=== PATIENT | female | born 1970 | race Caucasian/White ===

== ENCOUNTER 2021-11-25 01:34 | Emergency (ER) | payer OTHER ==
[2021-11-25 02:34] LABS: Glucose,Whole Blood 81 mg/dL (75-99)
[2021-11-25 02:42] LABS: Basophils % (A) 1 %; Eosinophils # (A) 0.1 k/uL (0-0.7); Eosinophils % (A) 3 %; HCT 37.7 % (34.0-46.0); HGB 12.2 gm/dL (11.4-16.0); Lymphocytes # (A) 2.4 k/uL (1.0-4.8); Lymphocytes % (A) 52 %; MCH 32.4 pg (25.0-35.0); MCHC 32.4 g/dL (31.0-37.0); MCV 99.8 fL (80.0-100.0); Macrocytosis Slight; Mean Platelet Volume 7.6; Monocytes # (A) 0.2 k/uL (0-1.0); Monocytes % (A) 4 %; Neutrophils # (A) 1.6 k/uL (1.3-7.7); Neutrophils % (A) 36 %; Platelet Count 183 k/uL (150-450); RBC 3.77 m/uL (3.80-5.40); RDW 14.3 % (11.5-15.5); WBC 4.5 k/uL (3.8-10.6)
[2021-11-25 02:45] VITALS: TEMP 98
[2021-11-25 02:54] LABS: Albumin 3.2 g/dL (3.5-5.0); Calcium 8.8 mg/dL (8.4-10.2); Potassium 3.6 mmol/L (3.5-5.1); Total Bilirubin 0.4 mg/dL (0.2-1.3); Total Protein 5.7 g/dL (6.3-8.2)
[2021-11-25 03:02] LABS: Partial Thromboplastin Time 24.3 sec (22.0-30.0); Prothrombin Time 11.2 sec (9.0-12.0)
[2021-11-25 03:21] LABS: Appearance,Urine Clear (Clear); Bacteria,Urine Rare /hpf; Bilirubin,Urine Negative (Negative); Blood,Urine Negative (Negative); Color,Urine Yellow; Glucose,Urine (UA) Negative (Negative); Ketones,Urine Negative (Negative); Leukocyte Esterase,Urine Large (Negative); Mucus,Urine Rare /hpf; Nitrite,Urine Negative (Negative); PH, Urine 6.5 (5.0-8.0); Protein,Urine Negative (Negative); RBC,Urine 1 /hpf (0-5); Specific Gravity,Urine 1.016 (1.001-1.035); Squamous Epithelial Cell,Urine 7 /hpf (0-4); WBC,Urine 15 /hpf (0-5)
--- NOTE | 2021-11-25 03:23 | CT ---
EXAMINATION TYPE: CT brain wo con DATE OF EXAM: 11/25/2021 COMPARISON: None HISTORY: AMS CT DLP: 1078.6 mGycm Automated exposure control for dose reduction was used. Ventricles have normal size. There is no mass effect or midline shift. There is no sign of intracrani al hemorrhage. Calvarium is intact. There is normal aeration of the mastoid sinuses. IMPRESSION: Negative unenhanced head CT scan.
[2021-11-25 03:38] LABS: Amphetamine Screen,Urine Not Detected (NotDetected); Barbiturate Screen,Urine Not Detected (NotDetected); Benzodiazepines Screen,Urine Not Detected (NotDetected); Cocaine Screen,Urine Not Detected (NotDetected); Methadone Screen, Urine Not Detected (NotDetected); Opiate Screen,Urine Not Detected (NotDetected); Oxycodone Screen, Urine Not Detected (NotDetected); Phencyclidine Screen,Urine Not Detected (NotDetected); Tricyclic Antidepressant,Urine Not Detected (NotDetected); Urn Cannabinoid Scrn Detected (NotDetected)
--- NOTE | 2021-11-25 03:41 | XR ---
EXAMINATION TYPE: XR chest 1V DATE OF EXAM: 11/25/2021 COMPARISON: NONE HISTORY: Pain. Altered mental status TECHNIQUE: FINDINGS: Heart is normal. Lungs are clear of infiltrate. There is no heart failure. There are no hil ar masses. Costophrenic angles are clear. IMPRESSION: No active cardiopulmonary disease.
[2021-11-25 03:45] VITALS: RESP 18
[2021-11-25] MEDS ORDERED: SODIUM CHLORIDE 0.9% 1,000 ML IV ONE (04:34)
[2021-11-25] MEDS: SULFAMETHOX-TMP 800-160MG 1 EACH TAB PO STA ×2 (04:41→04:50)
--- NOTE | 2021-11-25 07:01 | ED ---
Headache HPI - General Chief Complaint: Headache Stated Complaint: Headache, Dizziness Time Seen by Provider: 11/25/21 02:01 Mode of arrival: ambulatory - History of Present Illness Initial Comments: This patient is a 51-year-old woman who presents to be evaluated for which she describes as a swimming feeling in her head. She states that it is not a spinning or vertiginous (to clarify from nursing note). She was feeling unsteady. There was also little bit of generalized headache. She had a similar episode a couple of weeks ago. She denies worst headache of life. There is no fever or chills. No neck stiffness. No strokelike symptoms. MD Complaint: other -: hour(s) Onset Description: gradual, now resolved Consistency: now resolved Improves With: nothing Worsens With: none Context: occurred at rest Associated Symptoms: nausea Treatments Prior to Arrival: none - Related Data Previous Rx's Medication Instructions Recorded Cephalexin [Keflex] 500 mg PO Q6HR #28 cap 11/25/21 Allergies Allergy/AdvReac Type Severity Reaction Status Date / Time No Known Allergies Allergy Verified 11/25/21 02:50 Review of Systems ROS Statement: Those systems with pertinent positive or pertinent negative responses have been documented in the HPI. ROS Other: All systems not noted in ROS Statement are negative. Constitutional: Denies: fever, chills, weakness Eyes: Denies: eye pain, vision change Respiratory: Denies: cough, dyspnea Cardiovascular: Denies: chest pain, palpitations, syncope Gastrointestinal: Reports: nausea. Denies: abdominal pain, vomiting Genitourinary: Reports: frequency. Denies: dysuria, hematuria Musculoskeletal: Denies: back pain Skin: Denies: rash Neurological: Reports: as per HPI, headache. Denies: weakness, numbness, confusion, vertigo General Exam General appearance: alert, in no apparent distress Head exam: Present: atraumatic, normocephalic Eye exam: Present: normal appearance ENT exam: Present: mucous membranes dry Neck exam: Present: normal inspection, full ROM. Absent: tenderness, meningismus Respiratory exam: Present: normal lung sounds bilaterally. Absent: respiratory distress, wheezes, rales, rhonchi, stridor Cardiovascular Exam: Present: regular rate, normal rhythm, normal heart sounds. Absent: systolic murmur, diastolic murmur, rubs, gallop GI/Abdominal exam: Present: soft. Absent: distended, tenderness, guarding, rebound, rigid, mass Extremities exam: Present: normal inspection, normal capillary refill. Absent: pedal edema, calf tenderness Back exam: Present: normal inspection Neurological exam: Present: alert, oriented X3, CN II-XII intact. Absent: motor sensory deficit Skin exam: Present: warm, dry, intact, normal color. Absent: rash Course Vital Signs 11/25/21 11/25/21 11/25/21 02:40 02:45 03:41 Temperature 98.0 F Pulse Rate 63 56 L 70 Respiratory 18 16 18 Rate Blood Pressure 111/70 99/68 125/87 O2 Sat by Pulse 95 92 L 95 Oximetry 11/25/21 05:00 Temperature Pulse Rate 65 Respiratory 18 Rate Blood Pressure 111/90 O2 Sat by Pulse 98 Oximetry Medical Decision Making - Lab Data Result diagrams: 11/25/21 02:21 11/25/21 02:21 Lab Results 11/25/21 11/25/21 11/25/21 Range/Units 02:21 02:21 02:21 WBC 4.5 (3.8-10.6) k/uL RBC 3.77 L (3.80-5.40) m/uL Hgb 12.2 (11.4-16.0) gm/dL Hct 37.7 (34.0-46.0) % MCV 99.8 (80.0-100.0) fL MCH 32.4 (25.0-35.0) pg MCHC 32.4 (31.0-37.0) g/dL RDW 14.3 (11.5-15.5) % Plt Count 183 (150-450) k/uL MPV 7.6 Neutrophils % 36 % Lymphocytes % 52 % Monocytes % 4 % Eosinophils % 3 % Basophils % 1 % Neutrophils # 1.6 (1.3-7.7) k/uL Lymphocytes # 2.4 (1.0-4.8) k/uL Monocytes # 0.2 (0-1.0) k/uL Eosinophils # 0.1 (0-0.7) k/uL Basophils # 0.0 (0-0.2) k/uL Macrocytosis Slight PT 11.2 (9.0-12.0) sec INR 1.0 (<1.2) APTT 24.3 (22.0-30.0) sec Sodium (137-145) mmol/L Potassium (3.5-5.1) mmol/L Chloride (98-107) mmol/L Carbon Dioxide (22-30) mmol/L Anion Gap mmol/L BUN (7-17) mg/dL Creatinine (0.52-1.04) mg/dL Est GFR (CKD-EPI)AfAm (>60 ml/min/1.73 sqM) Est GFR (CKD-EPI)NonAf (>60 ml/min/1.73 sqM) Glucose (74-99) mg/dL POC Glucose (mg/dL) (75-99) mg/dL POC Glu Cable Engineer Outside Plant ID Calcium (8.4-10.2) mg/dL Total Bilirubin (0.2-1.3) mg/dL AST (14-36) U/L ALT (4-34) U/L Alkaline Phosphatase (38-126) U/L Troponin I (0.000-0.034) ng/mL Total Protein (6.3-8.2) g/dL Albumin (3.5-5.0) g/dL Urine Color Yellow Urine Appearance Clear (Clear) Urine pH 6.5 (5.0-8.0) Ur Specific [place] 1.016 (1.001-1.035) Urine Protein Negative (Negative) Urine Glucose (UA) Negative (Negative) Urine Ketones Negative (Negative) Urine Blood Negative (Negative) Urine Nitrite Negative (Negative) Urine Bilirubin Negative (Negative) Urine Urobilinogen 2.0 (<2.0) mg/dL Ur Leukocyte Esterase Large H (Negative) Urine RBC 1 (0-5) /hpf Urine WBC 15 H (0-5) /hpf Ur Squamous Epith Cells 7 H (0-4) /hpf Urine Bacteria Rare H (None) /hpf Urine Mucus Rare H (None) /hpf Urine Opiates Screen Not Detected (NotDetected) Ur Oxycodone Screen Not Detected (NotDetected) Urine Methadone Screen Not Detected (NotDetected) Ur Propoxyphene Screen Not Detected (NotDetected) Ur Barbiturates Screen Not Detected (NotDetected) U Tricyclic Antidepress Not Detected (NotDetected) Ur Phencyclidine Scrn Not Detected (NotDetected) Ur Amphetamines Screen Not Detected (NotDetected) U Methamphetamines Scrn Not Detected (NotDetected) U Benzodiazepines Scrn Not Detected (NotDetected) Urine Cocaine Screen Not Detected (NotDetected) U Marijuana (THC) Screen Detected H (NotDetected) 11/25/21 11/25/21 11/25/21 Range/Units 02:21 02:21 02:32 WBC (3.8-10.6) k/uL RBC (3.80-5.40) m/uL Hgb (11.4-16.0) gm/dL Hct (34.0-46.0) % MCV (80.0-100.0) fL MCH (25.0-35.0) pg MCHC (31.0-37.0) g/dL RDW (11.5-15.5) % Plt Count (150-450) k/uL MPV Neutrophils % % Lymphocytes % % Monocytes % % Eosinophils % % Basophils % % Neutrophils # (1.3-7.7) k/uL Lymphocytes # (1.0-4.8) k/uL Monocytes # (0-1.0) k/uL Eosinophils # (0-0.7) k/uL Basophils # (0-0.2) k/uL Macrocytosis PT (9.0-12.0) sec INR (<1.2) APTT (22.0-30.0) sec Sodium 139 (137-145) mmol/L Potassium 3.6 (3.5-5.1) mmol/L Chloride 105 (98-107) mmol/L Carbon Dioxide 31 H (22-30) mmol/L Anion Gap 3 mmol/L BUN 18 H (7-17) mg/dL Creatinine 0.89 (0.52-1.04) mg/dL Est GFR (CKD-EPI)AfAm 87 (>60 ml/min/1.73 sqM) Est GFR (CKD-EPI)NonAf 75 (>60 ml/min/1.73 sqM) Glucose 76 (74-99) mg/dL POC Glucose (mg/dL) 81 (75-99) mg/dL POC Glu Cable Engineer Outside [employer] ID Victorinoler, Farheen Calcium 8.8 (8.4-10.2) mg/dL Total Bilirubin 0.4 (0.2-1.3) mg/dL AST 17 (14-36) U/L ALT 9 (4-34) U/L Alkaline Phosphatase 52 (38-126) U/L Troponin I <0.012 (0.000-0.034) ng/mL Total Protein 5.7 L (6.3-8.2) g/dL Albumin 3.2 L (3.5-5.0) g/dL Urine Color Urine Appearance (Clear) Urine pH (5.0-8.0) Ur Specific [place] (1.001-1.035) Urine Protein (Negative) Urine Glucose (UA) (Negative) Urine Ketones (Negative) Urine Blood (Negative) Urine Nitrite (Negative) Urine Bilirubin (Negative) Urine Urobilinogen (<2.0) mg/dL Ur Leukocyte Esterase (Negative) Urine RBC (0-5) /hpf Urine WBC (0-5) /hpf Ur Squamous Epith Cells (0-4) /hpf Urine Bacteria (None) /hpf Urine Mucus (None) /hpf Urine Opiates Screen (NotDetected) Ur Oxycodone Screen (NotDetected) Urine Methadone Screen (NotDetected) Ur Propoxyphene Screen (NotDetected) Ur Barbiturates Screen (NotDetected) U Tricyclic Antidepress (NotDetected) Ur Phencyclidine Scrn (NotDetected) Ur Amphetamines Screen (NotDetected) U Methamphetamines Scrn (NotDetected) U Benzodiazepines Scrn (NotDetected) Urine Cocaine Screen (NotDetected) U Marijuana (THC) Screen (NotDetected) Disposition Clinical Impression: Urinary tract infection Disposition: HOME SELF-CARE Condition: Good Instructions (If sedation given, give patient instructions): Urinary Tract Infection in Women (ED) Prescriptions: Cephalexin [Keflex] 500 mg PO Q6HR #28 cap Is patient prescribed a controlled substance at d/c from ED?: No Referrals: Nonstaff,Physician [Primary Care Provider] - 1-2 days
[2021-11-25 07:58] VITALS: BP 112/91; PULSE 66
== END 2021-11-25 07:55 | disposition home or self-care (01) ==
LOC: EC 01:34
DX: N39.0 Urinary tract infection, site not specified (principal)
CPT/HCPCS: 36415; 93005; 80053; 84484; 85025; 85610; 85730; 81001; 80306; 87086; 71045; 70450; 99284; 96365; J0696

== ENCOUNTER 2021-11-29 00:52 | Emergency (ER) | payer OTHER ==
[2021-11-29 01:27] VITALS: BP 106/58; PULSE 73; RESP 17; TEMP 98
[2021-11-29] MEDS ORDERED: ONDANSETRON ODT 4 MG TAB PO STA (03:06)
== END 2021-11-29 03:22 | disposition left against medical advice (07) ==
LOC: EC 00:52
DX: Z53.21 Procedure and treatment not carried out due to patient leaving prior to being seen by health care provider (principal)
CPT/HCPCS: 99499

== ENCOUNTER 2023-03-13 03:45 | Observation (INO) | payer OTHER ==
[2023-03-13] MEDS ORDERED: NITROGLYCERIN SL TABS 0.4 MG TAB SUBLINGUAL STA (04:08)
[2023-03-13 04:33] LABS: Basophils % (A) 1 %; Eosinophils # (A) 0.2 k/uL (0-0.7); Eosinophils % (A) 3 %; HCT 40.2 % (34.0-46.0); HGB 13.3 gm/dL (11.4-16.0); Lymphocytes # (A) 2.3 k/uL (1.0-4.8); Lymphocytes % (A) 40 %; MCH 30.8 pg (25.0-35.0); MCV 93.3 fL (80.0-100.0); Mean Platelet Volume 7.6; Monocytes # (A) 0.4 k/uL (0-1.0); Monocytes % (A) 7 %; Neutrophils # (A) 2.6 k/uL (1.3-7.7); Neutrophils % (A) 47 %; Platelet Count 255 k/uL (150-450); RBC 4.31 m/uL (3.80-5.40); RDW 13.8 % (11.5-15.5); WBC 5.6 k/uL (3.8-10.6)
[2023-03-13 04:45] LABS: ALT 18 U/L (4-34); AST 24 U/L (14-36); African American GFR (CKD) 54 (>60 ml/min/1.73 sqM); Albumin 3.7 g/dL (3.5-5.0); Alkaline Phosphatase 111 U/L (38-126); Anion Gap 8 mmol/L; Blood Urea Nitrogen 15 mg/dL (7-17); Calcium 9.3 mg/dL (8.4-10.2); Carbon Dioxide 26 mmol/L (22-30); Chloride 104 mmol/L (98-107); Glucose 94 mg/dL (74-99); Magnesium 2.2 mg/dL (1.6-2.3); Non-African American GFR(CKD) 47 (>60 ml/min/1.73 sqM); Potassium 3.8 mmol/L (3.5-5.1); Sodium 138 mmol/L (137-145); Total Bilirubin 0.3 mg/dL (0.2-1.3); Total Protein 6.6 g/dL (6.3-8.2)
[2023-03-13] MEDS ORDERED: NITROGLYCERIN OINT 1 INCH/GM PACKET TOPICAL STA (04:57)
[2023-03-13 05:23] LABS: INR 0.9 (<1.2); Prothrombin Time 9.8 sec (9.0-12.0)
[2023-03-13 05:24] LABS: Partial Thromboplastin Time 22.4 sec (22.0-30.0)
[2023-03-13] MEDS ORDERED: NITROGLYCERIN SL TABS 0.4 MG TAB SUBLINGUAL PRN ×2 (05:54→14:53)
[2023-03-13] MEDS ORDERED: MORPHINE SULFATE 4 MG/ML SYRINGE IV STA (06:11)
[2023-03-13] MEDS ORDERED: MORPHINE SULFATE 4 MG/ML SYRINGE IVP STA (06:16)
[2023-03-13] MEDS ORDERED: HEPARIN SODIUM 1,000 UN/ML (10ML VL) IV PRN (06:46)
[2023-03-13] MEDS ORDERED: HEPARIN SODIUM 1,000 UN/ML (10ML VL) IV ONE (06:46)
--- NOTE | 2023-03-13 06:46 | ED ---
Chest Pain HPI - General Chief Complaint: Chest Pain Stated Complaint: Chest Pain Time Seen by Provider: 03/13/23 03:51 Source: patient, EMS Mode of arrival: EMS - History of Present Illness Initial Comments: This patient is 52-year-old woman who presents with substernal chest pain that she woke with tonight. The patient states that it radiates to the arm. She called EMS and was given nitroglycerin that did relieve the pain. Patient has risk factors including family history and smoking. MD Complaint: chest pain Onset/Timin -: hour(s) Onset: during rest Pain Location: substernal Pain Radiation: LUE Severity: moderate Severity scale (1-10): 7 Quality: tightness Consistency: now resolved Improves With: nitroglycerin Worsens With: nothing Treatments Prior to Arrival: aspirin, nitroglycerin, oxygen - Related Data Previous Rx's Medication Instructions Recorded Cephalexin [Keflex] 500 mg PO Q6HR #28 cap 11/25/21 Allergies Allergy/AdvReac Type Severity Reaction Status Date / Time meperidine [From Demerol] AdvReac Unknown Verified 03/13/23 04:00 Review of Systems ROS Statement: Those systems with pertinent positive or pertinent negative responses have been documented in the HPI. ROS Other: All systems not noted in ROS Statement are negative. Constitutional: Denies: fever, chills Respiratory: Denies: cough, dyspnea Cardiovascular: Reports: chest pain. Denies: palpitations, edema, syncope Gastrointestinal: Denies: abdominal pain, nausea, vomiting Genitourinary: Denies: dysuria, hematuria Musculoskeletal: Denies: back pain Skin: Denies: rash Neurological: Denies: headache, weakness EKG Findings - EKG Comments: EKG Findings:: Fossa right ventricular conduction delay based on QR pattern - EKG Results: EKG: interpreted by ERMD, sinus rhythm (Rate 70 bpm), normal axis - Blocks, [place], Hypertrophy, ST Abn: Repolarization changes or abnormalities: nonspecific abnormality, ST segment, and/or T wave Past Medical History Past Medical History: No Reported History Additional Past Medical History / Comment(s): migranes, TMJ, sciatica pain, PTSD History of Any Multi-Drug Resistant Organisms: None Reported Past Surgical History: Section Past Psychological History: Bipolar, PTSD Smoking Status: Current every day smoker Past Alcohol Use History: None Reported Past Drug Use History: None Reported General Exam General appearance: alert, in no apparent distress Head exam: Present: atraumatic, normocephalic Eye exam: Present: normal appearance. Absent: scleral icterus, conjunctival injection ENT exam: Present: normal oropharynx Neck exam: Present: normal inspection Respiratory exam: Present: normal lung sounds bilaterally. Absent: respiratory distress, wheezes, rales, rhonchi, stridor Cardiovascular Exam: Present: regular rate, normal rhythm, normal heart sounds. Absent: systolic murmur, diastolic murmur, rubs, gallop GI/Abdominal exam: Present: soft. Absent: distended, tenderness, guarding, rebound, rigid, mass Extremities exam: Present: normal inspection, normal capillary refill. Absent: pedal edema, calf tenderness Back exam: Present: normal inspection. Absent: CVA tenderness (R), CVA tenderness (L) Neurological exam: Present: alert Skin exam: Present: warm, dry, intact, normal color. Absent: rash Course Vital Signs 03/13/23 03/13/23 03/13/23 03:47 04:00 04:15 Temperature 97.7 F Pulse Rate 74 68 72 Respiratory 18 Rate Blood Pressure 140/80 140/80 135/86 O2 Sat by Pulse 97 95 94 L Oximetry 03/13/23 03/13/23 03/13/23 04:30 04:45 05:00 Temperature Pulse Rate 68 68 70 Respiratory Rate Blood Pressure 97/59 106/68 106/68 O2 Sat by Pulse 94 L 94 L 96 Oximetry 03/13/23 03/13/23 03/13/23 05:15 05:30 05:45 Temperature Pulse Rate 68 62 69 Respiratory Rate Blood Pressure 115/78 112/68 107/72 O2 Sat by Pulse 98 96 95 Oximetry 03/13/23 03/13/23 06:00 06:15 Temperature Pulse Rate 65 64 Respiratory Rate Blood Pressure 109/75 107/70 O2 Sat by Pulse 96 96 Oximetry Disposition Clinical Impression: Chest pain Disposition: ADMITTED IP TO THIS HOSP Condition: Fair Instructions (If sedation given, give patient instructions): Chest Pain (ED) Is patient prescribed a controlled substance at d/c from ED?: No Referrals: GEOVANNI JUAREZ MD [Primary Care Provider] - 1-2 days
[2023-03-13] MEDS ORDERED: HEPARIN SOD,PORK IN 0.45% NACL 25,000 UNIT in 0.45% NACL 1 250ML.BAG IV SCH (07:00)
--- NOTE | 2023-03-13 07:43 | XR ---
EXAM: XR Chest, 2 Views CLINICAL HISTORY: ITS.REASON XR Reason: Chest Pain TECHNIQUE: Frontal and lateral views of the chest. COMPARISON: No relevant prior studies available. IMPRESSION: 1. Apparent airspace disease on frontal imaging is favored to relate to overlying soft tissues at this is not seen on lateral imaging. 2. No acute cardiopulmonary abnormality.
--- NOTE | 2023-03-13 09:38 | P.CRDCN ---
History of Present Illness History of present illness: HISTORY OF PRESENT ILLNESS: This is a 52-year-old female with a past medical history significant for bipolar disorder and nicotine dependence. Patient does not follow with a certified fire investigator. We have been asked to see the patient in consultation for chest pain. Patient examined at the bedside. Patient states she woke up at 3:00 this morning from sleep with chest discomfort. She states the pain was a 10/10 at that time. She states that she tried to calm down and relax and the pain went to a 4/10. She denied any shortness of breath or radiation of the pain. She denies a history of hypertension, hyperlipidemia, or diabetes. She has a current cigarette smoker. She reports family history of coronary artery disease and states her dad had his first stent at age 42 and her brother had a 5 vessel CABG at age 54. * EKG reveals sinus mechanism with no signs of acute ischemia * Chest xray negative for acute process * Laboratory data: WBC 5.6. Hemoglobin 13.3. Platelet count 255. Sodium 138. Potassium 3.8. BUN 15. Creatinine 1.31. Magnesium 2.2. Troponin negative 2. * Current home cardiac medications include none REVIEW OF SYSTEMS: At the time of my exam: CONSTITUTIONAL: Denies fever or chills. HEENT: Denies blurred vision, vision changes, or eye pain. Denies hemoptysis CARDIOVASCULAR: Denies chest pain. Denies orthopnea. Denies PND. Denies palpitations RESPIRATORY: Denies shortness of breath. GASTROINTESTINAL: Denies abdominal pain. Denies nausea or vomiting. HEMATOLOGIC: Denies bleeding disorders. GENITOURINARY: Denies any blood in urine. SKIN: Denies pruitis. Denies rash. PHYSICAL EXAM: VITAL SIGNS: Reviewed. GENERAL: Well-developed in no acute distress. HEENT: Head is normocephalic. Pupils are equal, round. Sclerae anicteric. Mucous membranes of the mouth are moist. Neck supple. No JVD or thyromegaly LUNGS: Respirations even and unlabored. Lungs essentially clear to auscultation bilaterally. HEART: Regular rate and rhythm. S1 and S2 heard. ABDOMEN: Soft. Nondistended. Nontender. EXTREMITIES: Normal range of motion. No clubbing or cyanosis. Peripheral pulses intact. No lower extremity edema NEUROLOGIC: Awake and alert. Oriented x 3. ASSESSMENT: Chest pain, troponins negative 2 Acute kidney injury Bipolar disorder Nicotine dependence Family history of premature coronary artery disease PLAN: An acute coronary has been ruled out. Discontinue IV heparin. Decrease aspirin to 81 mg daily Obtain lipid panel Obtain third troponin Obtain 2-D echo to assess cardiac structure and function Patient to undergo stress echocardiogram today Smoking cessation recommended If negative, she may be discharged home from a cardiac standpoint Nurse practitioner note has been reviewed by physician. Signing provider agrees with the documented findings, assessment, and plan of care. Past Medical History Past Medical History: No Reported History Additional Past Medical History / Comment(s): migranes, TMJ, sciatica pain, PTSD History of Any Multi-Drug Resistant Organisms: None Reported Past Surgical History: Section Past Psychological History: Bipolar, PTSD Smoking Status: Current every day smoker Past Alcohol Use History: None Reported Past Drug Use History: None Reported Medications and Allergies Home Medications Medication Instructions Recorded Confirmed Type Divalproex ER [Depakote ER] 1,000 mg PO HS 03/13/23 03/13/23 History Escitalopram [Lexapro] 20 mg PO HS 03/13/23 03/13/23 History Phenazopyridine HCl [Pyridium] 100 mg PO BID 03/13/23 03/13/23 History Sulfamethox-Tmp 800-160Mg [Bactrim 1 tab PO BID 03/13/23 03/13/23 History DS 800-160 mg] diphenhydrAMINE [Benadryl] 75 mg PO HS PRN 03/13/23 03/13/23 History risperiDONE [RisperDAL] 2 mg PO HS 03/13/23 03/13/23 History Allergies Allergy/AdvReac Type Severity Reaction Status Date / Time meperidine [From Demerol] AdvReac Nausea & Verified 03/13/23 08:28 Vomiting Physical Exam Vitals: Vital Signs Temp Pulse Resp BP Pulse Ox 03/13/23 07:00 60 18 105/73 96 03/13/23 06:15 64 107/70 96 03/13/23 06:00 65 109/75 96 03/13/23 05:45 69 107/72 95 03/13/23 05:30 62 112/68 96 03/13/23 05:15 68 115/78 98 03/13/23 05:00 70 106/68 96 03/13/23 04:45 68 106/68 94 L 03/13/23 04:30 68 97/59 94 L 03/13/23 04:15 72 135/86 94 L 03/13/23 04:00 68 140/80 95 03/13/23 03:47 97.7 F 74 18 140/80 97 Intake and Output 03/12/23 03/13/23 03/13/23 22:59 06:59 14:59 Other: Weight 63.503 kg Results 03/13/23 04:15 03/13/23 04:15 Cardiac Enzymes 03/13/23 03/13/23 03/13/23 Range/Units 04:15 04:15 07:20 AST 24 (14-36) U/L Troponin I <0.012 <0.012 (0.000-0.034) ng/mL Coagulation 03/13/23 Range/Units 04:15 PT 9.8 (9.0-12.0) sec APTT 22.4 (22.0-30.0) sec CBC 03/13/23 Range/Units 04:15 WBC 5.6 (3.8-10.6) k/uL RBC 4.31 (3.80-5.40) m/uL Hgb 13.3 (11.4-16.0) gm/dL Hct 40.2 (34.0-46.0) % Plt Count 255 (150-450) k/uL Comprehensive Metabolic Panel 03/13/23 Range/Units 04:15 Sodium 138 (137-145) mmol/L Potassium 3.8 (3.5-5.1) mmol/L Chloride 104 (98-107) mmol/L Carbon Dioxide 26 (22-30) mmol/L BUN 15 (7-17) mg/dL Creatinine 1.31 H (0.52-1.04) mg/dL Glucose 94 (74-99) mg/dL Calcium 9.3 (8.4-10.2) mg/dL AST 24 (14-36) U/L ALT 18 (4-34) U/L Alkaline Phosphatase 111 (38-126) U/L Total Protein 6.6 (6.3-8.2) g/dL Albumin 3.7 (3.5-5.0) g/dL Current Medications Generic Name Dose Route Start Last Admin Trade Name Freq PRN Reason Stop Dose Admin Aspirin 325 mg 03/14/23 09:00 Aspirin 325 Mg Tab PO DAILY [facility] Heparin Sodium (Porcine) 0 unit 03/13/23 06:46 Heparin Sodium 1,000 Un/Ml (10ml Vl) IV PER PROTOCOL PRN Low PTT Protocol Heparin Sodium/Sodium Chloride 250 mls @ 7.62 mls/hr 03/13/23 07:00 03/13/23 07:22 25,000 unit/ Sodium Chloride IV 12 units/kg/hr .Q24H PAU 7.62 mls/hr Administration Protocol 12 UNITS/KG/HR Nitroglycerin 0.4 mg 03/13/23 05:54 Nitroglycerin Sl Tabs 0.4 Mg Tab SUBLINGUAL Q5M PRN Chest Pain Intake and Output 03/12/23 03/13/23 03/13/23 22:59 06:59 14:59 Other: Weight 63.503 kg 03/13/23 04:15 03/13/23 04:15
--- NOTE | 2023-03-13 10:43 | P.HPIM ---
History of Present Illness This is a pleasant 52 years old female with past medical history of migraine, PTSD, bipolar. Patient presents because of chest pain about 10/10 in severity 3:00 in the morning today. Patient woke up with this pain which is in the middle nonradiating felt like squeezing with no really precipitating or relieving factors currently her pain is down to 4/10. She denies dyspnea or coughing. No new GI urinary or neurological symptoms when I asked the patient. She smokes 1 pack per day and she was counseled to quit and she agrees to the nicotine patch. No alcohol, she uses marijuana and she goes to addiction doctor to quit. She is hemodynamically stable and afebrile She has unremarkable CBC, INR, BMP and liver enzymes except for mildly elevated creatinine of 1.3 She started on aspirin and heparin drip which is stopped now. Review of Systems Review of systems CONSTITUTIONAL: No fever, no malaise, no fatigue. HEENT: No recent visual problems or hearing problems. Denied any sore throat. CARDIOVASCULAR: No orthopnea, PND, no palpitations, no syncope. PULMONARY: No shortness of breath, no cough, no hemoptysis. GASTROINTESTINAL: No diarrhea, no nausea, no vomiting, no abdominal pain. Normoactive bowel sounds. NEUROLOGICAL: No headaches, no weakness, no numbness. HEMATOLOGICAL: Denies any bleeding or petechiae. GENITOURINARY: Denies any burning micturition, frequency, or urgency. MUSCULOSKELETAL/RHEUMATOLOGICAL: Denies any joint pain, swelling, or any muscle pain. ENDOCRINE: Denies any polyuria or polydipsia. Past Medical History Past Medical History: No Reported History Additional Past Medical History / Comment(s): migranes, TMJ, sciatica pain, PTSD History of Any Multi-Drug Resistant Organisms: None Reported Past Surgical History: Section Past Psychological History: Bipolar, PTSD Smoking Status: Current every day smoker Past Alcohol Use History: None Reported Past Drug Use History: None Reported Medications and Allergies Home Medications Medication Instructions Recorded Confirmed Type Divalproex ER [Depakote ER] 1,000 mg PO HS 03/13/23 03/13/23 History Escitalopram [Lexapro] 20 mg PO HS 03/13/23 03/13/23 History Phenazopyridine HCl [Pyridium] 100 mg PO BID 03/13/23 03/13/23 History Sulfamethox-Tmp 800-160Mg [Bactrim 1 tab PO BID 03/13/23 03/13/23 History DS 800-160 mg] diphenhydrAMINE [Benadryl] 75 mg PO HS PRN 03/13/23 03/13/23 History risperiDONE [RisperDAL] 2 mg PO HS 03/13/23 03/13/23 History Allergies Allergy/AdvReac Type Severity Reaction Status Date / Time meperidine [From Demerol] AdvReac Nausea & Verified 03/13/23 08:28 Vomiting Physical Exam Vitals: Vital Signs Temp Pulse Resp BP Pulse Ox 03/13/23 10:00 60 18 109/60 95 03/13/23 07:00 60 18 105/73 96 03/13/23 06:15 64 107/70 96 03/13/23 06:00 65 109/75 96 03/13/23 05:45 69 107/72 95 03/13/23 05:30 62 112/68 96 03/13/23 05:15 68 115/78 98 03/13/23 05:00 70 106/68 96 03/13/23 04:45 68 106/68 94 L 03/13/23 04:30 68 97/59 94 L 03/13/23 04:15 72 135/86 94 L 03/13/23 04:00 68 140/80 95 03/13/23 03:47 97.7 F 74 18 140/80 97 Intake and Output 03/12/23 03/13/23 03/13/23 22:59 06:59 14:59 Other: Weight 63.503 kg GENERAL: The patient is alert and oriented x3, not in any acute distress. Well developed, well nourished. HEENT: Pupils are round and equally reacting to light. EOMI. No scleral icterus. No conjunctival pallor. Normocephalic, atraumatic. No pharyngeal erythema. No thyromegaly. CARDIOVASCULAR: S1 and S2 present. No murmurs, rubs, or gallops. PULMONARY: Chest is clear to auscultation, no wheezing , no crackles. ABDOMEN: Soft, nontender, nondistended, normoactive bowel sounds. No palpable organomegaly. MUSCULOSKELETAL: No joint swelling or deformity. EXTREMITIES: No cyanosis, clubbing, or pedal edema. NEUROLOGICAL: Gross neurological examination did not reveal any focal deficits. SKIN: No rashes. no petechiae. Results CBC & Chem 7: 03/13/23 04:15 03/13/23 04:15 Labs: Abnormal Lab Results - Last 24 Hours (Table) 03/13/23 Range/Units 04:15 Creatinine 1.31 H (0.52-1.04) mg/dL Assessment and Plan Assessment: Chest pain, rule out cardiac causes Nicotine dependence Mild acute kidney injury History of migraine Depression and bipolar with history of PTSD Plan: Continue with aspirin Cardiology consult Stress test per security operations center analyst Start normal saline at 75 mL/h and monitor creatinine. Check a bladder scan. Labs and medication were reviewed.. Continue same treatment. Continue with symptomatic treatment. Resume home medication. Monitor labs and vitals. DVT and GI prophylaxis. Further recommendations as per clinical course of the patient DVT prophylaxis: Subcutaneous heparin GI Prophylaxis: Pepcid Prognosis is guarded
[2023-03-13] MEDS: SODIUM CHLORIDE 0.9% 1,000 ML IV SCH (10:48)
[2023-03-13] MEDS: FAMOTIDINE 20 MG/2 ML VIAL IV SCH ×2 (10:55→21:51)
[2023-03-13] MEDS ORDERED: CAFFEINE CITRATE 60 MG/3 ML VIAL IV PRN (11:33)
[2023-03-13] MEDS ORDERED: AMINOPHYLLINE 500 MG/20 ML VIAL IV PRN (11:33)
[2023-03-13] MEDS ORDERED: REGADENOSON 0.4 MG/5 ML SYRINGE IV PRN (11:33)
--- NOTE | 2023-03-13 11:46 | CA ---
Transthoracic Echo Report Name: Madison Storm Age: 52 Gender: F : 1970 Exam Date: 03/13/2023 08:30 Exam Location: [facility] Ht (in): 67 Wt (lb): 140 Ordering Physician: Luna Rich Attending/Referring Phys: [id number], Hilario Environmental Consultant Carlin Vila Procedure CPT: Indications: LV function, CP Cardiac Hx: Technical Quality: Fair Contrast 1: Total Dose (mL): Contrast 2: Total Dose (mL): MEASUREMENTS (Male / Female) Normal Values 2D ECHO LV Diastolic Diameter PLAX 4.2 cm 4.2 - 5.9 / 3.9 - 5.3 cm LV Systolic Diameter PLAX 3.0 cm IVS Diastolic Thickness 0.9 cm 0.6 - 1.0 / 0.6 - 0.9 cm LVPW Diastolic Thickness 0.9 cm 0.6 - 1.0 / 0.6 - 0.9 cm LV Relative Wall Thickness 0.4 RV Internal Dim ED PLAX 2.4 cm LVOT Diameter 2.0 cm Aortic Root Diameter 2.8 cm LA Systolic Diameter LX 1.4 cm 3.0 - 4.0 / 2.7 - 3.8 cm LV Diastolic Volume MOD BP 35.5 cm??? 67 - 155 / 56 - 104 cm??? LV Systolic Volume MOD BP 14.7 cm??? 22 - 58 / 19 - 49 cm??? LV Ejection Fraction MOD BP 58.6 % >= 55 % LV Cardiac Index MOD BP 697.1 cm???/min???m??? LV Diastolic Volume MOD 4C 31.5 cm??? LV Systolic Volume MOD 4C 14.2 cm??? LV Ejection Fraction MOD 4C 55.0 % LV Cardiac Index MOD 4C 579.4 cm???/min???m??? LV Diastolic Length 4C 5.9 cm LV Systolic Length 4C 4.9 cm LV Diastolic Volume MOD 2C 40.0 cm??? LV Systolic Volume MOD 2C 10.1 cm??? LV Ejection Fraction MOD 2C 74.8 % LV Cardiac Index MOD 2C 1000.1 cm???/min???m??? LV Diastolic Length 2C 6.0 cm LV Systolic Length 2C 5.2 cm LA Volume 21.3 cm??? 18 - 58 / 22 - 52 cm??? Ascending Aorta Diameter 2.8 cm DOPPLER AV Peak Velocity 112.1 cm/s AV Peak Gradient 5.0 mmHg LVOT Peak Velocity 96.5 cm/s LVOT Peak Gradient 3.7 mmHg AV Area Cont Eq pk 2.8 cm??? MV Peak Velocity 95.0 cm/s MV Peak Gradient 3.6 mmHg MV Mean Velocity 39.1 cm/s MV Mean Gradient 0.8 mmHg MV Velocity Time Integral 32.0 cm Mitral E Point Velocity 85.8 cm/s Mitral A Point Velocity 64.3 cm/s Mitral E to A Ratio 1.3 MV Deceleration Time 268.4 ms MV E' Velocity 11.8 cm/s Mitral E to MV E' Ratio 7.3 TR Peak Velocity 150.3 cm/s TR Peak Gradient 9.0 mmHg Right Ventricular Systolic Press 14.5 mmHg PV Peak Velocity 87.5 cm/s PV Peak Gradient 3.1 mmHg FINDINGS Left Ventricle Normal LV size and wall thickness. Left ventricular ejection fraction is estimated at 50-55 %. Right Ventricle Normal right ventricular size. Right Atrium Normal right atrial size. Left Atrium Normal left atrial size. Mitral Valve Structurally normal mitral valve. Aortic Valve Not well visualized but grossly normal. No aortic valve stenosis or regurgitation. Tricuspid Valve Structurally normal tricuspid valve. Trace TR. Pulmonic Valve Pulmonic valve not well visualized. Mild to moderate PI. Pericardium Normal pericardium. Aorta Normal size aortic root. CONCLUSIONS Normal LV function Previewed by: Dr. Glenroy Hubbard MD (Electronically Signed) Final Date: 13 March 2023 11:45
--- NOTE | 2023-03-13 14:35 | NM ---
EXAMINATION TYPE: NM stress lexiscan cardiolite DATE OF EXAM: 03/13/2023 COMPARISON: NONE CLINICAL INDICATION: Female, 52 years old with history of CP; TECHNIQUE: After the intravenous administration of 10.1 mCi Tc 99m Sestamibi - Cardiolite resting SP ECT images acquired 60 minutes post injection. The patient received 0.4mg Lexiscan, 25.1 mCi Tc 99m Sestamibi - Stress images obtained [address] injection FINDINGS: Review of stress and rest SPECT images demonstrates small area reversibility involving the apex myoca rdium. Gated analysis shows normal wall motion with an estimated left ventricular ejection fraction of 66 %. IMPRESSION: Small focal area of reversibility involving the apex of the myocardium may be artifactual rather than representing an area of stress-induced reversible ischemia correlate clinically.
[2023-03-13] MEDS ORDERED: ALPRAZolam 0.5 MG TAB PO PRN (14:53)
[2023-03-13] MEDS ORDERED: ALPRAZolam 0.25 MG TAB PO PRN (14:53)
[2023-03-13] MEDS: NICOTINE 21MG/24HR PATCH TRANSDERM SCH (15:28)
--- NOTE | 2023-03-13 17:00 | CA ---
Lexiscan Nuclear Stress Test Report Name: Madison Storm Exam Date: 03/13/2023 12:55 Exam Location: [facility] Ht (in): 67 Wt (lb): 140 BSA: 1.74 Ordering Phys: Luna Rich Referring Phys: NILSON,, Technologist: PRAVEEN,, Age: 52 Gender: F : 1970 Procedure CPT: Indications: Reflex order-Stress test ICD-10 Codes: Patient History: Chest pain Medications: Meds past 24 hrs: Pretest Chest Pain: STRESS TEST Lexiscan Protocol Exercise Duration (min:sec): 02:[address] Depressions (mm): Angina Score: Davis Score: Resting HR (bpm): 63 Peak HR (bpm): 91 Resting BP (mmHg): 103 / 59 Peak BP (mmHg): 123 / 62 MPHR: 168 Target HR: 143 % MPHR: 54 METS: 1.0 Total Dose: Peak Dose: Atropine: Double Product: 35585 BP Response: Stress Termination: Infusion complete Stress Symptoms: No chest pain or symptoms Stress Summary: ECG ANALYSIS Resting ECG: Normal sinus rhythm normal axis normal intervals Stress ECG: Patient was given intravenous Lexiscan as a protocol did not have chest pain or diagnostic ST segment depression CONCLUSIONS Negative stress test by EKG criteria Part LAD portion of the stress test will be reported separately Dr. Glenroy Hubbard MD (Electronically Signed) Final Date: 13 March 2023 16:59
[2023-03-13 20:10] LABS: Glucose,Whole Blood 108 mg/dL (70-110)
[2023-03-13] MEDS ORDERED: diphenhydrAMINE 25 MG CAP PO PRN (21:06)
[2023-03-13] MEDS: DIVALPROEX ER 500 MG TAB.ER.24H PO SCH (21:46)
[2023-03-13] MEDS: risperiDONE 2 MG TAB PO SCH (21:46)
[2023-03-13] MEDS: ESCITALOPRAM 20 MG TAB PO SCH (21:46)
[2023-03-13] MEDS: HEPARIN SODIUM,PORCINE 5,000 UNIT/ML 1 ML VIAL SQ SCH (21:46)
[2023-03-14] MEDS: SODIUM CHLORIDE 0.9% 1,000 ML in EMPTY BAG 1 BAG IV SCH ×2 (00:01→16:28)
[2023-03-14] MEDS: SODIUM CHLORIDE 0.9% 1,000 ML IV SCH ×2 (02:26→13:41)
[2023-03-14] MEDS ORDERED: ATORVASTATIN 80 MG TAB PO ONE (05:00)
[2023-03-14] MEDS ORDERED: ASPIRIN 325 MG TAB PO ONE (05:00)
[2023-03-14] MEDS ORDERED: HEPARIN SODIUM,PORCINE 10,000 UNIT in SODIUM CHLORIDE 0.9% 1,000 ML IRRIGATION PRN (07:00)
[2023-03-14] MEDS ORDERED: HEPARIN SODIUM,PORCINE (1 ML) 2,500 UNIT in SODIUM CHLORIDE 0.9% 250 ML IRRIGATION PRN (07:00)
[2023-03-14] MEDS: FAMOTIDINE 20 MG/2 ML VIAL IV SCH ×2 (08:23→21:40)
[2023-03-14] MEDS: NICOTINE 21MG/24HR PATCH TRANSDERM SCH (08:24)
[2023-03-14] MEDS: HEPARIN SODIUM,PORCINE 5,000 UNIT/ML 1 ML VIAL SQ SCH ×2 (08:24→21:40)
[2023-03-14] MEDS ORDERED: ASPIRIN 325 MG TAB PO SCH (09:00)
[2023-03-14] MEDS ORDERED: ASPIRIN 81 MG PO SCH (09:00)
[2023-03-14 10:55] LABS: Basophils # (A) 0.04 X 10*3/uL (0.00-0.10); Eosinophils # (A) 0.13 X 10*3/uL (0.04-0.35); Eosinophils % (A) 3.2 %; HCT 38.8 % (37.2-46.3); HGB 12.6 d/dL (12.0-15.0); Lymphocytes # (A) 1.96 X 10*3/uL (0.90-5.00); MCH 30.4 pg (27.0-32.0); MCHC 32.5 d/dL (32.0-37.0); MCV 93.7 FL (80.0-97.0); Mean Platelet Volume 10.1 FL (9.5-12.2); Monocytes # (A) 0.43 X 10*3/uL (0.20-1.00); Monocytes % (A) 10.5 %; NRBC Per 100 WBC 0 X 10*3/uL (0.00-0.01); Neutrophils # (A) 1.48 X 10*3/uL (1.80-7.70); Neutrophils % (A) 36.3 %; Platelet Count 259 X 10*3/uL (140-440); RBC 4.14 X 10*6/uL (4.10-5.20); RDW 13.8 % (11.5-14.5); WBC 4.08 X 10*3/uL (4.50-10.00)
[2023-03-14 10:58] LABS: INR 0.9 (<1.2); Partial Thromboplastin Time 28.8 sec (22.0-30.0); Prothrombin Time 10.1 sec (9.0-12.0)
[2023-03-14 11:12] LABS: BUN/Creat Ratio 17.08 Ratio (12.00-20.00); Blood Urea Nitrogen 20.5 mg/dL (9.0-27.0); Calcium 8.8 mg/dL (8.7-10.3); Carbon Dioxide 23.6 mmol/L (21.6-31.8); Chloride 107 mmol/L (96-109); Chol/HDL Ratio 4.76 Ratio; Glucose 86 mg/dL (70-110); LDL Cholesterol,Calculated 140.9 mg/dL (0.0-131.0); Potassium 4.9 mmol/L (3.5-5.5); Sodium 139 mmol/L (135-145); VLDL Calculation 18.72 mg/dL (5.00-40.00)
[2023-03-14] MEDS ORDERED: MIDAZOLAM 2 MG/2 ML VIAL IVP ONE (11:29)
[2023-03-14] MEDS ORDERED: fentaNYL (PF) 50 MCG/ML 2 ML AMP IVP ONE (11:30)
[2023-03-14] MEDS ORDERED: LIDOCAINE 1% INJ 10MG/ML (5 ML VIAL-PF) SQ ONE (11:32)
[2023-03-14] MEDS ORDERED: VERAPAMIL SYRINGE (5 MG/10 ML) INTRAARTER ONE (11:35)
[2023-03-14] MEDS ORDERED: HEPARIN SODIUM 1,000 UN/ML (10ML VL) IVP ONE ×2 (11:36)
[2023-03-14] MEDS ORDERED: IOPAMIDOL-370 100ML BTL INJ ONE (11:44)
[2023-03-14] MEDS ORDERED: IV FLUID CONTINUATION 900 ML IV ONE (11:45)
--- NOTE | 2023-03-14 12:11 | CC ---
CARDIAC CATHETERIZATION REPORT INDICATION: Chest pain with abnormal stress test. PROCEDURE NOTE: After obtaining informed consent, left heart catheterization and coronary angiogram were performed via the right radial artery using standard Joy catheters. The patient tolerated the procedure well without any obvious immediate complications. The patient received moderate conscious sedation. Total sedation time was 19 minutes. Right radial artery access was obtained using Seldinger technique. A 6-Spanish sheath was placed. Catheters and wires were floated into the ascending aorta under fluoroscopic guidance. The patient had some discomfort related to the vasospasm and I gave her a second dose of verapamil. The procedure was completed uneventfully and a TR band was used for hemostasis. The patient received verapamil and heparin per protocol. FINDINGS: HEMODYNAMICS: 1. Left ventricular end-diastolic pressure is 8 to 10 mm. There is no significant gradient across the aortic valve. 2. Left ventriculogram: Left ventriculogram is not performed. ANGIOGRAPHIC DATA: 1. Left main coronary artery: Left main coronary artery is a normal-sized vessel and is free of stenosis. It divides into left anterior descending coronary artery and circumflex coronary artery. 2. LAD and its branches, circumflex coronary artery and its branches are free of significant stenosis. 3. Right coronary artery is a large dominant vessel and is free of significant disease. CONCLUSIONS: No significant obstructive coronary artery disease, normal left ventricular end- diastolic pressure. PLAN: The patient's chest pain is probably noncardiac in origin and the abnormal stress test is a false-positive stress test. MMODL / IJN: [id number] /
[2023-03-14] MEDS ORDERED: RX INFO: IV CONTRAST WAS GIVEN 1 EACH MISC MISCELLANE PRN (12:19)
[2023-03-14 14:33] VITALS: RESP 15
[2023-03-14] MEDS: DIVALPROEX ER 500 MG TAB.ER.24H PO SCH (20:27)
[2023-03-14] MEDS: ESCITALOPRAM 20 MG TAB PO SCH (20:28)
[2023-03-14] MEDS: risperiDONE 2 MG TAB PO SCH (20:28)
[2023-03-14 21:31] VITALS: BP 108/68; PULSE 77; TEMP 98.2
--- NOTE | 2023-03-14 22:59 | P.DS ---
Providers Date of admission: 03/13/23 05:55 Attending physician: Osbaldo Mark Consults: 03/13/23 05:55 Consult Physician Routine Consulting Provider: Fran Rothman Consult Reason/Comments: chest pain Do you want consulting provider notified?: Yes Primary care physician: GEOVANNI JUAREZ MD Hospital Course: Diagnoses: Chest pain, resolved, cardiac causes were ruled out Nicotine dependence Mild acute kidney injury, improving History of migraine Depression and bipolar with history of PTSD Hospital course: This is a pleasant 52 years old female with past medical history of migraine, PTSD, bipolar. Patient presents because of chest pain about 05/07. Patient evaluated by laborer prestressed concrete, she underwent stress test which came back positive for reversible ischemia however she had a normal cardiac cath and most likely stress test was a false positive test. Chest pain resolved and patient is symptomatic today denying any other new symptoms, at bedside Patient was cleared for discharge by laborer prestressed concrete Problems and management plan were discussed with the patient and he verbalized understanding and acceptance Patient was found stable and can be discharged home in guarded prognosis however he needs follow-up as an outpatient. Patient was instructed to follow up with PCP within one week and patient agrees Patient was instructed to follow up with laborer prestressed concrete Dr. Orantes in 1-2 weeks after discharge and she agrees Physical exam Gen: patient is a AAOx3, no distress CVS: S1-S2, RRR, no murmur Lungs: B/L CTA, no wheezing Abdomen: soft, no distention, no tenderness, positive bowel sounds Extremity: no leg edema or induration Time spent more than 35 minutes Patient Condition at Discharge: Good Plan - Discharge Summary New Discharge Prescriptions: New Nicotine 21Mg/24Hr Patch [Habitrol] 1 patch TRANSDERM DAILY #3 patch Continue risperiDONE [RisperDAL] 2 mg PO HS Phenazopyridine HCl [Pyridium] 100 mg PO BID Escitalopram [Lexapro] 20 mg PO HS Divalproex ER [Depakote ER] 1,000 mg PO HS diphenhydrAMINE [Benadryl] 75 mg PO HS PRN PRN Reason: Insomnia Discontinued Sulfamethox-Tmp 800-160Mg [Bactrim DS 800-160 mg] 1 tab PO BID Discharge Medication List Divalproex ER [Depakote ER] 1,000 mg PO HS 03/13/23 [History] Escitalopram [Lexapro] 20 mg PO HS 03/13/23 [History] Phenazopyridine HCl [Pyridium] 100 mg PO BID 03/13/23 [History] diphenhydrAMINE [Benadryl] 75 mg PO HS PRN 03/13/23 [History] risperiDONE [RisperDAL] 2 mg PO HS 03/13/23 [History] Nicotine 21Mg/24Hr Patch [Habitrol] 1 patch TRANSDERM DAILY #3 patch 03/14/23 [Rx] Follow up Appointment(s)/Referral(s): GEOVANNI JUAREZ MD [Primary Care Provider] - 1-2 days Glenroy Hubbard MD [STAFF PHYSICIAN] - 1 Week (Office will call with appointment time and date.) Patient Instructions/Handouts: Chest Pain (ED), Heart Catheterization (DC) Activity/Diet/Wound Care/Special Instructions: Heart healthy diet Activity is restricted till you see your doctor Discharge Disposition: HOME SELF-CARE
== END 2023-03-14 21:39 | disposition home or self-care (01) ==
LOC: EC 03:45 → 6NMEDSUR 05:55
PROVIDERS: ADMIT Hospitalist; ATTEND Hospitalist
DX: R07.9 Chest pain, unspecified (principal); F17.210 Nicotine dependence, cigarettes, uncomplicated; R79.89 Other specified abnormal findings of blood chemistry; R94.39 Abnormal result of other cardiovascular function study; N17.9 Acute kidney failure, unspecified; G43.909 Migraine, unspecified, not intractable, without status migrainosus; F31.9 Bipolar disorder, unspecified; F43.10 Post-traumatic stress disorder, unspecified; M54.30 Sciatica, unspecified side; M26.609 Unspecified temporomandibular joint disorder, unspecified side; Z88.8 Allergy status to other drugs, medicaments and biological substances; Z79.899 Other long term (current) drug therapy; Z71.6 Tobacco abuse counseling; Z82.49 Family history of ischemic heart disease and other diseases of the circulatory system
CPT/HCPCS: 36415; 71046; 78452; 80048; 80053; 80061; 83735; 84484; 85025; 85610; 85730; 93005; 93017; 93306; 93458; 94760; 96365; 96366; 96375; 96376